=== PATIENT | female | born 1945 | race Caucasian/White ===

== ENCOUNTER → 2019-06-13 10:10 | Outpatient (BNVA) | payer MEDICARE, OTHER, SELFPAY | PROVIDERS: Family Provider Nurse Practitioner Family; PCP Nurse Practitioner Family; Referring Provider Family Medicine; Visit Provider Nurse Practitioner Family | DX: E03.9 Hypothyroidism, unspecified (principal); E78.00 Pure hypercholesterolemia, unspecified; L98.9 Disorder of the skin and subcutaneous tissue, unspecified | CPT/HCPCS: 36415; 80053; 80061; 84439; 84443 ==

== ENCOUNTER → 2019-06-20 10:58 | Outpatient (BNVA) | payer MEDICARE, OTHER, SELFPAY | PROVIDERS: Family Provider Nurse Practitioner Family; PCP Nurse Practitioner Family; Visit Provider Anesthesiology | DX: G89.29 Other chronic pain (principal); M54.5 Low back pain; M79.605 Pain in left leg; Z79.891 Long term (current) use of opiate analgesic | CPT/HCPCS: 99214 ==

== ENCOUNTER 2019-07-11 14:18 | Outpatient (CLI) | payer MEDICARE, OTHER, SELFPAY ==
--- NOTE | 2019-07-11 14:26 | MM_ITS ---
WS: [id number] BILATERAL DIGITAL SCREENING MAMMOGRAM WITH CAD CLINICAL INFORMATION: SCREENING HISTORY: Screening mammogram. No current complaints. COMPARISON: July 12, 2018 TECHNIQUE: Bilateral CC and MLO views. FINDINGS: Fatty-replaced breasts bilaterally. Vascular calcification. Stable intramammary lymph nodes. No suspi cious focal mass, asymmetry, calcifications, or architectural distortion. No evidence of malignancy. MM/[place] [id number] IMPRESSION: BI-RADS: 2-Benign FOLLOW UP: 1 Year Follow-up Recommend return to annual screening mammography.
== END 2019-07-11 14:19 | disposition home or self-care (01) ==
PROVIDERS: Family Provider Nurse Practitioner Family; PCP Nurse Practitioner Family; Visit Provider Nurse Practitioner Family
DX: Z12.31 Encounter for screening mammogram for malignant neoplasm of breast (principal)
CPT/HCPCS: 77067

== ENCOUNTER → 2019-08-16 10:16 | Outpatient (BNVA) | payer MEDICARE, OTHER, SELFPAY | PROVIDERS: Family Provider Nurse Practitioner Family; PCP Nurse Practitioner Family; Visit Provider Nurse Practitioner | DX: G89.29 Other chronic pain (principal); M54.5 Low back pain; Z79.891 Long term (current) use of opiate analgesic | CPT/HCPCS: 99212 ==

== ENCOUNTER 2019-10-08 13:55 | Emergency (ER) | payer MEDICARE, OTHER, SELFPAY ==
[2019-10-08 14:14] VITALS: BP 140/76; PULSE 91; RESP 14; TEMP 37.1; O2SAT 98; BMI 33.6
[2019-10-08 14:50] VITALS: RESP 15
[2019-10-08] MEDS: morphine 4 mg/mL SDV 1 mL IVP ×2 (14:50→15:07)
[2019-10-08] MEDS: ketorolac 30 mg/mL INJ 15 MG IVP (14:51)
[2019-10-08] MEDS: orphenadrine 30 mg/mL Inj 2 mL 60 MG IVP (14:52)
--- NOTE | 2019-10-08 15:00 | W.ED.BACK ---
HPI - Back Pain/Injury General: Chief Complaint: Back Pain/Injury Stated Complaint: back pain Time Seen by Provider: 10/08/19 14:35 History of Present Illness: HPI Narrative: 74-year-old female presents complaining of low back pain she has chronic low back pain usually sees a pain clinic she had contacted the pain clinic they still have her on regular medications she also had been to her PCP 5 days ago she was started on prednisone pain clinic referred her to the emergency room today she has a spinal cord stimulator reportedly is still functional but is not been helping much. She denied any urinary retention or fecal incontinence. She cannot recall a precipitating event which triggered it. Associated symptoms: Deny abdominal pain, chills, dysuria, fatigue, fever(s), nausea, urinary urgency or vomiting Review of Systems Const: Denies: fever(s), chills, body aches, change in appetite, fatigue or malaise ENMT: Denies: throat pain, ear or mastoid pain, nasal discharge or nasal congestion Card: Denies: chest pain, edema, dyspnea on exertion or orthopnea Resp: Denies: dyspnea, productive cough or non-productive cough GI: Denies: abdominal pain, nausea, vomiting, hematemesis, coffee ground emesis, diarrhea, constipation, bloating, hematochezia or melena : Denies: flank pain, difficulty voiding, dysuria, urinary frequency or urinary urgency Skin/Breast: Denies: rash or pruritus [facility] ED PFSH: Medical History Encounter for long-term opiate analgesic use Enrolled in chronic care management Hypertension Hypothyroidism Lumbosacral pain, chronic Obesity Surgical History History of adenoidectomy History of ankle surgery Left History of arthroscopic knee surgery History of back surgery (~2016) pain stimulator- dr. santiago History of dilation and curettage uterus History of hysterectomy History of surgery on right wrist History of tonsillectomy History of total right knee replacement Family History Father Cancer Heart disease Grandmother Stroke Denies family history of Anesthesia complication Bleeding disorder Social History (Reviewed 10/08/19 @ 15:15 by BEAU Andrade Smoking and tobacco status: never smoked Alcohol intake: never Physical Exam Const: COMMON NORMALS: no acute distress GENERAL APPEARANCE: cooperative and comfortable ORIENTATION/CONSCIOUSNESS: Yes awake, Yes oriented to person, Yes oriented to place and Yes oriented to time Neck/C-Spine: COMMON NORMALS: full ROM, no lymphadenopathy, supple and no JVD Resp: COMMON NORMALS: normal respiratory effort, No retractions, No use of accessory muscles and clear to auscultation bilaterally AUSCULTATION: clear to auscultation bilaterally Cardio: COMMON NORMALS: no JVD, regular rate, regular rhythm and No murmurs present (Cardio) RATE: regular rate RHYTHM: regular rhythm GI: COMMON NORMALS: Soft to palpation and No hepatosplenomegaly present AUSCULTATION: Yes normoactive bowel sounds PALPATION: Yes Soft to palpation, No Tenderness to palpation present (GI), No Guarding due to palpation present (GI) and Yes No hepatosplenomegaly present Extremity: COMMON NORMALS: normal to inspection, capillary refill normal, no clubbing, cyanosis or edema, no calf tenderness and no pedal edema Neuro: SENSORIUM/ORIENTATION: Yes oriented to person, Yes oriented to place and Yes oriented to time Skin: COMMON NORMALS: no rashes or lesions noted GENERAL SKIN EXAM: no rashes or lesions noted Course Vital Signs: Vital signs: Vital Signs Temperature 98.7 F 10/08/19 14:14 Pulse Rate 78 10/08/19 15:58 Respiratory Rate 16 10/08/19 15:58 Blood Pressure 156/75 10/08/19 15:58 Pulse Oximetry 97 10/08/19 15:58 MDM - Back Pain/Injury MDM Narrative: Medical decision making narrative: Chronic lumbosacral pain improved after medications continue previously prescribed medications follow-up with a pain clinic Discharge Plan Discharge Patient Disposition: Home, Self-Care Clinical Impression: Lumbosacral pain, chronic Condition: Stable Prescriptions: No Action naproxen 500 mg tablet 500 mg PO DAILY PRN (Reason: Pain) RF: 0 diphenhydramine HCl [Benadryl] 25 mg capsule 25 mg PO DAILY PRN (Reason: Itching) RF: 0 aspirin [Aspirin Childrens] 81 mg tablet,chewable 162 mg PO QDAY RF: 0 magnesium oxide 500 mg capsule 1,000 mg PO BEDTIME RF: 0 tizanidine 4 mg tablet 4 mg PO TID PRN (Reason: muscle spasticity) Qty: 90 RF: 1 hydrocodone-acetaminophen 10-325 mg tablet 1.5 tab PO TID PRN (Reason: pain) 30 Days Qty: 135 RF: 0 prednisone 20 mg tablet See Rx Instructions .ROUTE .COMPLEX Qty: 15 RF: 0 levothyroxine 75 mcg capsule 75 mcg PO QDAY Qty: 30 RF: 3 Discharge Orders: Discharge Order (Routine); Ordered 10/08/19 Ordered By: Anthony Hanks Referrals: Allie Kline NP [Primary Care Provider] - Discharge Diet: Usual diet Discharge Activity: Increase activity as tolerated Activity Restrictions/Additional Instructions: Take medications previously prescribed by the pain clinic. Follow-up with the pain clinic for further adjustments to pain medication management. Discharge Date/Time: 10/08/19 15:59 Coding Level of Care Code ED Proposal Rep for Thorg Fwd Exam Detailed
[2019-10-08 15:07] VITALS: RESP 16
--- NOTE | 2019-10-08 15:53 | PC.NURSE ---
Patient assisted to bedside commode
[2019-10-08 15:58] VITALS: BP 156/75; PULSE 78; RESP 16; O2SAT 97
== END 2019-10-08 15:59 | disposition home or self-care (01) ==
PROVIDERS: Emergency Provider Family Medicine; PCP Nurse Practitioner Family
DX: G89.29 Other chronic pain (principal); M54.5 Low back pain; Z79.82 Long term (current) use of aspirin; I10 Essential (primary) hypertension; E03.9 Hypothyroidism, unspecified
CPT/HCPCS: 12345; 96374; 96375; 99282; 99283; J1885; J2270; J2360

== ENCOUNTER → 2019-10-25 10:59 | Outpatient (BNVA) | payer MEDICARE, OTHER, SELFPAY | PROVIDERS: PCP Nurse Practitioner Family; Visit Provider Anesthesiology | DX: G89.29 Other chronic pain (principal); M54.41 Lumbago with sciatica, right side; M54.42 Lumbago with sciatica, left side; M54.9 Dorsalgia, unspecified; Z79.891 Long term (current) use of opiate analgesic | CPT/HCPCS: 99213; 99214 ==

== ENCOUNTER 2019-10-30 13:53 | Outpatient (CLI) | payer MEDICARE, OTHER, SELFPAY ==
--- NOTE | 2019-10-30 14:00 | CT_ITS ---
WS: [id number] CT LUMBAR SPINE TECHNIQUE: Noncontrast CT of the lumbar spine with coronal and sagittal reformatted images. CLINICAL INFORMATION: chronic back pain COMPARISON: MRI October 28, 2016 DLP: 1482.[address] scans at [facility] use at least one of these dose optimization techniques: automat ed exposure control; mA and/or kV adjustment per patient size (includes targeted exams where dose is matched to clinical indication); or iterative reconstruction. FINDINGS: Mild lumbar scoliosis convex left. Moderate spondylitic changes lumbar spine with multilevel degenera tive disc disease. Disc space narrowing worse at L1-L2, L2-L3, L3-L4 with vacuum disc phenomenon and endplate degenerative changes. This is progressed since 2017. No acute appearing compression fracture s. Spinal stimulator traverses cephalad off the [id number]. Extensive bilateral sacral insufficiency fractures with visualized fracture clefts right greater than left. Recommend correlation with sacral pain. L1-L2: Mild disc bulging with vacuum disc phenomenon. Spinal canal and foramen are patent. Mild facet arthropathy. L2-L3: Disc osteophyte ridging with slight effacement of the ventral thecal sac. Narrowing of the rig ht subarticular recess. Mild right foraminal narrowing. Mild central canal stenosis. Moderate facet a rthropathy. L3-L4: Slight retrolisthesis. Vacuum disc phenomenon with disc desiccation. Mild right and no signifi cant left foraminal narrowing. Mild central canal stenosis with narrowing of the subarticular recess. Moderate facet arthropathy. L4-L5: Tiny left pericentral protrusion. Mild left and no significant right foraminal narrowing. Adva nced facet arthropathy ligamentum flavum hypertrophy. L5-S1: No significant disc bulging. Mild left and no significant right bony foraminal narrowing. Mode rate facet arthropathy CT/CT lumbar spine wo con* [id number] IMPRESSION: 1. Extensive bilateral sacral insufficiency fractures partially visualized inv olving both sacral ala right greater than left. Recommend correlation for sacra l pain. 2. Mild central canal stenosis with progressed disc desiccation L2-L3 and L3-L 4. 3. Narrowing of the right subarticular recess L2-3 with impingement traversing right L3 nerve root. Mild right L2-3 foraminal narrowing. 4. Mild right L3-4 and left L4-5 foraminal narrowing. 5. Advanced facet arthropathy L3-L4 and L4-L5. 6. Spinal stimulator extending cephalad of the [id number].
--- NOTE | 2019-10-30 14:15 | CT_ITS ---
WS: [id number] CT THORACIC SPINE TECHNIQUE: Noncontrast CT of the thoracic spine with coronal and sagittal reformatted images. CLINICAL INFORMATION: chronic back pain COMPARISON: None. DLP: 1096.[address] scans at [facility] use at least one of these dose optimization techniques: automat ed exposure control; mA and/or kV adjustment per patient size (includes targeted exams where dose is matched to clinical indication); or iterative reconstruction. FINDINGS: Mild thoracic curve convex right. No acute appearing compression fractures. No high-grade central can al stenosis. Dorsal spinal stimulator. Mild disc space narrowing mid and lower thoracic spine. A few Schmorl's nodes in the mid lower thoracic spine. Adrenal glands are normal. Normal caliber partially visualized thoracic aorta. Small esophageal hiata l hernia. Spinal stimulator projected over the mid thoracic spine dorsally with tip at the T7 level. CT/CT thoracic spin wo con* [id number] IMPRESSION: 1. Mild thoracic curve convex right with moderate spondylitic changes. 2. Mild chronic anterior wedging in the mid thoracic spine more prominent at T 5 and T6. No acute appearing compression fractures. 3. A few Schmorl's nodes in the mid and lower thoracic spine. 4. Dorsal spinal stimulator with tip at the T7 level. 5. No high-grade central canal stenosis. 6. Small esophageal hiatal hernia. 7. No acute thoracic spine findings.
== END 2019-10-30 13:54 | disposition home or self-care (01) ==
LOC: RADWPI 13:58
PROVIDERS: PCP Nurse Practitioner Family; Visit Provider Nurse Practitioner Family
DX: M54.5 Low back pain (principal); G89.29 Other chronic pain; M51.44 Schmorl's nodes, thoracic region; K44.9 Diaphragmatic hernia without obstruction or gangrene
CPT/HCPCS: 72128; 72131

== ENCOUNTER → 2019-12-25 09:40 | Outpatient (BNVA) | payer MEDICARE, OTHER, SELFPAY | PROVIDERS: PCP Nurse Practitioner Family; Visit Provider Nurse Practitioner Family | DX: E78.5 Hyperlipidemia, unspecified (principal); E83.52 Hypercalcemia | CPT/HCPCS: 36415; 80048; 80061 ==

== ENCOUNTER → 2020-02-05 12:05 | Outpatient (BNVA) | payer MEDICARE, OTHER, SELFPAY | PROVIDERS: PCP Nurse Practitioner Family; Visit Provider Internal Medicine | DX: Z11.59 Encounter for screening for other viral diseases (principal) | CPT/HCPCS: 87635 ==

== ENCOUNTER 2020-02-10 08:31 | Day surgery (SDC) | payer MEDICARE, OTHER, SELFPAY ==
[2020-02-06 13:37] VITALS: BMI 33.4
--- NOTE | 2020-02-10 08:51 | W.PM.OPSUD ---
Surgery/Procedure H&P Update DATE OF PROCEDURE: February 10, 2020 DATE H&P PERFORMED: 02/05/20 PLANNED PROCEDURE: Operation Date: 02/10/20 10:00 Proposed Procedures p EGD/colon 08995 60184 Z86.10 R13.10(Not Applicable) - Aniceto Rand MD s Colonoscopy(Not Applicable) - Aniceto Rand MD
[2020-02-10 09:27] VITALS: BP 144/81; PULSE 90; RESP 18; TEMP 36.6; O2SAT 97
[2020-02-10] MEDS: sodium chloride 0.9% 1,000 ML 30 ML IV (09:34)
--- NOTE | 2020-02-10 09:40 | ANES.PREANE2 ---
Pre-Anesthetic Assessment Pre-Anesthetic Assessment: Height/Weight: Height 1.65 m Weight 91.172 kg Temp Pulse Resp BP Pulse Ox 97.8 F 90 18 144/81 97 02/10/20 09:27 02/10/20 09:27 02/10/20 09:27 02/10/20 09:27 02/10/20 09:27 Preop Diagnosis: odynophagia Proposed Procedure: Operation Date: 02/10/20 10:00 Proposed Procedures p EGD/colon 93280 00309 Z86.10 R13.10(Not Applicable) - Aniceto Rand MD s Colonoscopy(Not Applicable) - Aniceto Rand MD Familial anesthetic complications: none Was Beta Neftaly taken within 24 hours: N/A Last intake: Intake Last Liquid Date 02/09/20 Last Liquid Time 23:55 Last Solid Date 02/08/20 Last Solid Time 18:00 Social: Social History: No alcohol and No tobacco Exam: Pre-Anes Outpt Exam: alert, oriented x 3, clear to auscultation bilaterally and regular rate & rhythm Airway: Cervical ROM: WNL MP: 3 Dentition: Other (no teeth) GI: GI: Hiatus hernia Metabolic: Metabolic: Thyroid Musc/skel: Musc/skel: Lower Back Pain (w/ SCS) Anesthetic Plan: ASA status: 2 Anesthesia: MAC Risk of > 500 ml blood loss (7ml/kg in children): No Meds/Allergies Current Medications: Current Medications Generic Name Dose Route Start Last Admin Trade Name Freq PRN Reason Stop Dose Admin Sodium Chloride 1,000 mls @ 30 ml s/hr 02/10/20 08:45 02/10/20 09:34 Sodium Chloride 0.9% IV 02/11/20 08:44 30 mls/hr .Q24H ASTON Administration PFSH Anesthesia PFSH: Medical History (Updated 02/05/20 @ 11:25 by Aniceto Rand MD) Encounter for long-term opiate analgesic use Enrolled in chronic care management Hypertension Hypothyroidism Lumbosacral pain, chronic Obesity Surgical History History of adenoidectomy History of ankle surgery Left History of arthroscopic knee surgery History of back surgery (~2015) pain stimulator- dr. santiago History of dilation and curettage uterus History of hysterectomy History of surgery on right wrist History of tonsillectomy History of total right knee replacement Family History Father Cancer Heart disease Grandmother Stroke Denies family history of Anesthesia complication Bleeding disorder Social History Smoking and tobacco status: never smoked Second hand smoke exposure: No Alcohol intake: never History of recent travel: No Data Anesthesia Cardiac Studies: No Data to Display
[2020-02-10 11:05] VITALS: BP 97/62; PULSE 79; RESP 18; TEMP 36.3; O2SAT 95
--- NOTE | 2020-02-10 11:08 | ANE.PACU2 ---
Inpatient post-anesthesia follow up: Airway intact: Yes Vital signs: Temperature 97.8 F Pulse Rate 90 Respiratory Rate 18 Blood Pressure 144/81 Pulse Oximetry 97 Oxygen Delivery Me thod Room Air Oxygen Flow Rate Fraction of Inspir ed Oxygen Hydration adequate: Yes Nausea and vomiting: No Pain level: 0 Mental status: Baseline
[2020-02-10 11:20] VITALS: BP 107/62; PULSE 74; RESP 18; O2SAT 97
[2020-02-11 08:43] LABS: H. Pylori / CLO Test Negative
== END 2020-02-10 11:45 | disposition home or self-care (01) ==
PROVIDERS: PCP Nurse Practitioner Family; Visit Provider Internal Medicine
PROC: 0DJ08ZZ Inspection of Upper Intestinal Tract, Via Natural or Artificial Opening Endoscopic (ICD-10-PCS; CPT 43235; principal; 2020-02-10 10:00)
PROC: 0DJD8ZZ Inspection of Lower Intestinal Tract, Via Natural or Artificial Opening Endoscopic (ICD-10-PCS; CPT 45378; 2020-02-10 10:00)
DX: Z12.11 Encounter for screening for malignant neoplasm of colon (principal); K25.7 Chronic gastric ulcer without hemorrhage or perforation; I10 Essential (primary) hypertension; E03.9 Hypothyroidism, unspecified; E66.9 Obesity, unspecified; Z79.82 Long term (current) use of aspirin; Z88.0 Allergy status to penicillin; Z88.2 Allergy status to sulfonamides; Z68.33 Body mass index [BMI] 33.0-33.9, adult; Z86.010 Personal history of colon polyps
CPT/HCPCS: 12345; 43239; 45378; 87077; J2250; J2370; J2704; J3010; J7030

== ENCOUNTER 2020-03-30 13:28 | Outpatient (CLI) | payer MEDICARE, OTHER, SELFPAY ==
--- NOTE | 2020-03-30 13:30 | US_ITS ---
WS: [id number] ABDOMINAL ULTRASOUND LIMITED REASON FOR VISIT: pain TECHNIQUE: Grayscale and Doppler ultrasound examination of the abdomen. FINDINGS: Pancreas: Visualized portions of the pancreas are unremarkable. Abdominal aorta and IVC: Visualized portions are unremarkable. Liver: Liver measures 14.6 cm in length. Mildly increased echotexture. No focal lesion. Gallbladder: Gallbladder wall thickness measures 0.2 mm. No calculi identified. Common bile duct norm al caliber. Right kidney: Right kidney measures 10.3 cm x 5.0 cm x 4.5 cm. Right kidney cortex measures 1.3 cm. N o mass, calculus or hydronephrosis. No free fluid. US/US gall bladder [id number] IMPRESSION: Probable fatty infiltration of the liver without other abnormality.
== END 2020-03-30 13:29 | disposition home or self-care (01) ==
LOC: RAD 13:35
PROVIDERS: PCP Nurse Practitioner Family; Visit Provider Internal Medicine
DX: R10.9 Unspecified abdominal pain (principal)
CPT/HCPCS: 76705

== ENCOUNTER 2020-05-06 07:55 | Outpatient (CLI) | payer MEDICARE, OTHER, SELFPAY ==
--- NOTE | 2020-05-06 08:00 | NM_ITS ---
WS: [id number] NUCLEAR MEDICINE HIDA SCAN WITH GALLBLADDER EJECTION FRACTION HISTORY: R10.13 - Epigastric pain COMPARISON: 03/30/2020 TECHNIQUE: The patient was intravenously injected with 7.6 mCi of TC99m Mebrofenin. Immediate imaging over the right upper quadrant was followed by 5 minute image and additional images for a total of 60 minutes. Normal uptake of radiotracer throughout the liver. Activity identified in the gallbladder at 15 minutes and well distended by 60 minutes. Activity in the proximal small bowel was seen by 30 minutes. Good washout of the radiotracer from the liver by 60 minutes. The patient then drank 8 ounces of Ensure Plus. Ejection fraction at 60 minutes was 74%. Normal GB ej ection fraction is 35-75%. Post fatty meal symptoms: RIGHT upper quadrant pain. NM/NM hepatobiliary w phar* [id number] IMPRESSION: 1. Normal HIDA scan. 2. Normal gallbladder ejection fraction.
== END 2020-05-06 07:56 | disposition home or self-care (01) ==
LOC: NM 07:55
PROVIDERS: PCP Nurse Practitioner Family; Visit Provider Surgery
DX: R10.13 Epigastric pain (principal)
CPT/HCPCS: 78227; A9537

== ENCOUNTER → 2020-07-03 09:19 | Outpatient (BNVA) | payer MEDICARE, SELFPAY | PROVIDERS: PCP Nurse Practitioner Family; Visit Provider Nurse Practitioner Family | DX: E03.9 Hypothyroidism, unspecified (principal); E83.42 Hypomagnesemia | CPT/HCPCS: 80053; 80061; 83735; 84439; 84443; 85025 ==

== ENCOUNTER → 2020-07-10 10:43 | Outpatient (BNVA) | payer MEDICARE, SELFPAY | PROVIDERS: PCP Nurse Practitioner Family; Visit Provider Nurse Practitioner Family | DX: Z78.0 Asymptomatic menopausal state (principal); R74.8 Abnormal levels of other serum enzymes | CPT/HCPCS: 82977 ==

== ENCOUNTER 2020-07-14 10:03 | Outpatient (CLI) | payer MEDICARE, SELFPAY ==
--- NOTE | 2020-07-14 10:09 | MM_ITS ---
WS: [id number] SCREENING DIGITAL MAMMOGRAM WITH CAD HISTORY: SCREENING COMPARISON: 07/11/2019, 07/12/2018 and 07/06/2017 Bilateral CC and MLO views submitted. Computer aided detection analyzed. Breast composition: There are scattered areas of fibroglandular density. Developing irregular asymmet ry measuring 9 mm in the anterior RIGHT breast at 12:00. Benign calcifications in each breast. MM/[place] [id number] IMPRESSION: BI-RADS: 0-Incomplete: Need additional imaging evaluation FOLLOW UP: Need Additional Imaging RIGHT breast: Spot compression views (CC and MLO). True ML. Ultrasound to follo w if abnormality persists.
--- NOTE | 2020-07-14 11:12 | XR_ITS ---
WS: [id number] DEXA (DUAL ENERGY X-RAY ABSORPTIOMETRY) Bone mineral density was performed using a Tapingo machine. HISTORY: Z78.0 - Asymptomatic menopausal state COMPARISON: None available. Left forearm BMD: 0.628 g/cm2. T score: -2.8 Z score: -0.6 Total hip BMD: Left: 0.655 g/cm2. T score: -2.8 Z score: -1.6 Right: 0.666 g/cm2. T score: -2.7 Z score: -1.5 10 year probability of a major osteoporotic fracture is 25%. XR/XR DEXA axial skeleton* [id number] IMPRESSION: OSTEOPOROSIS based upon the WHO classification for females.
== END 2020-07-14 10:04 | disposition home or self-care (01) ==
PROVIDERS: PCP Nurse Practitioner Family; Visit Provider Nurse Practitioner Family
DX: Z12.31 Encounter for screening mammogram for malignant neoplasm of breast (principal); Z78.0 Asymptomatic menopausal state; M81.0 Age-related osteoporosis without current pathological fracture; N64.89 Other specified disorders of breast
CPT/HCPCS: 77067; 77080

== ENCOUNTER 2020-07-30 07:53 | Outpatient (CLI) | payer MEDICARE, SELFPAY ==
--- NOTE | 2020-07-30 08:00 | MM_ITS ---
WS: [id number] ADDITIONAL VIEWS RIGHT BREAST RIGHT breast ultrasound, limited HISTORY: R92.8 - Other abnormal and inconclusive findings on diagnostic imaging of breast COMPARISON: 07/14/2020 and 07/11/2019 Compression views right CC and MLO projection. True ML also submitted. The asymmetry nearly completely resolves. Very subtle remaining asymmetries seen on the lateral proje ction. Ultrasound to follow. RIGHT breast ultrasound, limited. Minimally complex cyst with wall at 12:00 anteriorly. This may or may not correspond to the mammograp hic abnormality. There are no additional abnormalities. MM/[place] [id number] IMPRESSION: BI-RADS: 3-Probably Benign FOLLOW-UP: 6 Month Follow-up Recommend ultrasound follow-up RIGHT breast at 6 months to reevaluate the compl ex cyst at 12:00.
--- NOTE | 2020-07-30 08:07 | US_ITS ---
WS: [id number] ADDITIONAL VIEWS RIGHT BREAST RIGHT breast ultrasound, limited HISTORY: R92.8 - Other abnormal and inconclusive findings on diagnostic imaging of breast COMPARISON: 07/14/2020 and 07/11/2019 Compression views right CC and MLO projection. True ML also submitted. The asymmetry nearly completely resolves. Very subtle remaining asymmetries seen on the lateral proje ction. Ultrasound to follow. RIGHT breast ultrasound, limited. Minimally complex cyst with wall at 12:00 anteriorly. This may or may not correspond to the mammograp hic abnormality. There are no additional abnormalities. US/US breast RT limited* [id number] IMPRESSION: BI-RADS: 3-Probably Benign FOLLOW-UP: 6 Month Follow-up Recommend ultrasound follow-up RIGHT breast at 6 months to reevaluate the compl ex cyst at 12:00.
== END 2020-07-30 07:54 | disposition home or self-care (01) ==
LOC: RADSHAW 07:57
PROVIDERS: PCP Nurse Practitioner Family; Visit Provider Nurse Practitioner Family
DX: N64.89 Other specified disorders of breast (principal); N60.01 Solitary cyst of right breast
CPT/HCPCS: 76642; 77065

== ENCOUNTER → 2020-08-07 10:03 | Outpatient (BNVA) | payer MEDICARE, SELFPAY | PROVIDERS: PCP Nurse Practitioner Family; Visit Provider Nurse Practitioner Family | DX: M25.562 Pain in left knee (principal) | CPT/HCPCS: 73562 ==

== ENCOUNTER 2021-01-20 12:28 | Outpatient (CLI) | payer MEDICARE, SELFPAY ==
--- NOTE | 2021-01-20 12:45 | US_ITS ---
WS: [id number] ULTRASOUND RIGHT BREAST HISTORY: N60.01 - Solitary cyst of right breast COMPARISON: 07/30/2020 TECHNIQUE: 2-D and Doppler. At 12:00 near the areolar there is a hypoechoic nodule measuring 4 x 4 x 2 mm which has not changed i n size since the prior examination. This probably represents a complex cyst. There is no increased va scularity. US/US breast RT limited* [id number] IMPRESSION: BI-RADS: 3-Probably Benign FOLLOW-UP: 6 Month Follow-up Indication 6 month evaluation of the complex cyst in the RIGHT breast at 12:00 is recommended by ultrasound. Patient should return for annual mammogram in Jun. Ultrasound of this cyst can be performed at that time.
== END 2021-01-20 12:29 | disposition home or self-care (01) ==
PROVIDERS: PCP Nurse Practitioner Family; Visit Provider Nurse Practitioner Family
DX: N60.01 Solitary cyst of right breast (principal)
CPT/HCPCS: 76642

== ENCOUNTER 2021-02-23 08:31 | Outpatient (CLI) | payer MEDICARE, SELFPAY ==
--- NOTE | 2021-02-23 08:45 | US_ITS ---
WS: [id number] Left breast ultrasound, 02/23/2021 Clinical Data: N64.59 - Other signs and symptoms in breast Comparison: Left breast ultrasound, 08/03/2010. Findings: Imaging of the left breast 12:00 to 9:00 position demonstrated no cysts or masses. There was an area of subcutaneous thickening at the 3:00 position which is nonspecific. No air-fluid levels or distinct mass was noted. US/US breast LT limited* [id number] Impression: 1. Minimal subcutaneous emptying at the 3:00 position left breast 1 cm from the nipple which is nonspecific. 2. Recommend clinical evaluation. 3. Recommend annual screening mammograms. BIRADS: 2-Benign FOLLOW UP: See Report
--- NOTE | 2021-02-23 11:04 | MM_ITS ---
WS: [id number] Bilateral diagnostic digital mammogram, 02/23/2021 Clinical Data: N64.4 - Mastodynia Comparison: 07/30/2020, 07/14/2020, 07/11/2019, 07/12/2018, 07/06/2017, 06/15/2016, 06/03/2015, 08/03/2010, . Findings: The breast parenchymal pattern shows fat replacement. There are numerous mole markers on both breasts . Axillary lymph nodes are seen. There are no secondary signs of carcinoma. No spiculated masses or c lustered calcifications are seen. Additional left breast imaging with compression in the CC view show ed no abnormalities. MM/[place] [id number] Impression: 1. Negative bilateral mammograms unchanged. 2. Left breast ultrasound performed for mastodynia. BIRADS: 2-Benign FOLLOW UP: See Report The CAD lap checker was used.
== END 2021-02-23 08:32 | disposition home or self-care (01) ==
PROVIDERS: PCP Nurse Practitioner Family; Visit Provider Nurse Practitioner Family
DX: N64.4 Mastodynia (principal); N64.59 Other signs and symptoms in breast
CPT/HCPCS: 76642; 77066

== ENCOUNTER → 2021-06-02 08:42 | Outpatient (BNVA) | payer MEDICARE, SELFPAY | PROVIDERS: PCP Nurse Practitioner Family; Visit Provider Family Medicine | DX: E55.9 Vitamin D deficiency, unspecified (principal); I10 Essential (primary) hypertension; E83.42 Hypomagnesemia; E03.9 Hypothyroidism, unspecified | CPT/HCPCS: 80053; 80061; 82306; 83735; 84443; 85025 ==

== ENCOUNTER 2021-07-13 08:36 | Outpatient (CLI) | payer MEDICARE, SELFPAY ==
--- NOTE | 2021-07-13 09:00 | MM_ITS ---
WS: [id number] ADDITIONAL VIEWS RIGHT MAMMOGRAM RIGHT BREAST ULTRASOUND HISTORY: Follow-up complex cyst RIGHT breast at 12:00. COMPARISON: 02/23/2021, 07/30/2020 and 07/14/2020 and 07/12/2018 RIGHT MAMMOGRAM: Spot compression views and true ML. Small ovoid nodule measuring 4 mm persists posterior to the nipple. Best seen on the MLO projection. No suspicious mass or calcification. Ultrasound to follow. RIGHT BREAST ULTRASOUND 2-D and color Doppler imaging submitted. The complex cyst noted at 12:00 in the RIGHT breast is unchanged. Villareal are slightly echogenic and th is nodule is ovoid measuring 4 x 4 x 2 mm. No increase in size. MM/[place] [id number] IMPRESSION: BI-RADS: 2-Benign FOLLOW UP: 6 Month Follow-up Patient to return for bilateral diagnostic mammogram in February 2022. Continued ultrasound documentation of the RIGHT breast complex cyst recommended to roger long-term stability.
--- NOTE | 2021-07-13 09:30 | US_ITS ---
WS: [id number] ADDITIONAL VIEWS RIGHT MAMMOGRAM RIGHT BREAST ULTRASOUND HISTORY: Follow-up complex cyst RIGHT breast at 12:00. COMPARISON: 02/23/2021, 07/30/2020 and 07/14/2020 and 07/12/2018 RIGHT MAMMOGRAM: Spot compression views and true ML. Small ovoid nodule measuring 4 mm persists posterior to the nipple. Best seen on the MLO projection. No suspicious mass or calcification. Ultrasound to follow. RIGHT BREAST ULTRASOUND 2-D and color Doppler imaging submitted. The complex cyst noted at 12:00 in the RIGHT breast is unchanged. Villareal are slightly echogenic and th is nodule is ovoid measuring 4 x 4 x 2 mm. No increase in size. US/US breast RT limited* [id number] IMPRESSION: BI-RADS: 2-Benign FOLLOW UP: 6 Month Follow-up Patient to return for bilateral diagnostic mammogram in February 2022. Continued ultrasound documentation of the RIGHT breast complex cyst recommended to roger long-term stability.
== END 2021-07-13 08:37 | disposition home or self-care (01) ==
LOC: RADSHAW 08:57
PROVIDERS: PCP Nurse Practitioner Family; Visit Provider Nurse Practitioner Family
DX: N64.59 Other signs and symptoms in breast (principal); N63.15 Unspecified lump in the right breast, overlapping quadrants
CPT/HCPCS: 76642; 77065

== ENCOUNTER → 2022-02-03 09:02 | Outpatient (BNVA) | payer MEDICARE, SELFPAY | PROVIDERS: PCP Nurse Practitioner Family; Referring Provider Nurse Practitioner; Visit Provider Specialist | DX: G62.89 Other specified polyneuropathies (principal) | CPT/HCPCS: 95909; 95911 ==

== ENCOUNTER 2022-02-28 07:34 | Outpatient (CLI) | payer MEDICARE, SELFPAY ==
--- NOTE | 2022-02-28 07:42 | MM_ITS ---
WS: [id number] DIAGNOSTIC BILATERAL DIGITAL BREAST TOMOSYNTHESIS MAMMOGRAPHY WITH CAD RIGHT breast ultrasound, limited HISTORY: N63.0 - Unspecified lump in unspecified breast COMPARISON: 07/13/2021, 02/23/2021 and 07/12/2018 TECHNIQUE: Bilateral craniocaudad, mediolateral oblique, and mediolateral views are submitted with to mosynthesis and SM. Spot compression RIGHT MLO and cc. Computer aided detection utilized. Breast composition: There are scattered areas of fibroglandular density. The 5 mm nodule just posteri or to the nipple is reidentified without increase in size. This is near the 12:00 axis in the anterio r breast. RIGHT breast ultrasound, limited. Ultrasound directed to the 12:00 as the site previously described. At 12:00 there is an ovoid hypoech oic 5 x 4 x 2 mm nodule which is probably a complex cyst. No increase in size. MM/[place] [id number] IMPRESSION: BI-RADS: 2-Benign FOLLOW UP: 1 Year Follow-up
--- NOTE | 2022-02-28 08:30 | US_ITS ---
WS: [id number] DIAGNOSTIC BILATERAL DIGITAL BREAST TOMOSYNTHESIS MAMMOGRAPHY WITH CAD RIGHT breast ultrasound, limited HISTORY: N63.0 - Unspecified lump in unspecified breast COMPARISON: 07/13/2021, 02/23/2021 and 07/12/2018 TECHNIQUE: Bilateral craniocaudad, mediolateral oblique, and mediolateral views are submitted with to mosynthesis and SM. Spot compression RIGHT MLO and cc. Computer aided detection utilized. Breast composition: There are scattered areas of fibroglandular density. The 5 mm nodule just posteri or to the nipple is reidentified without increase in size. This is near the 12:00 axis in the anterio r breast. RIGHT breast ultrasound, limited. Ultrasound directed to the 12:00 as the site previously described. At 12:00 there is an ovoid hypoech oic 5 x 4 x 2 mm nodule which is probably a complex cyst. No increase in size. US/US breast RT limited* [id number] IMPRESSION: BI-RADS: 2-Benign FOLLOW UP: 1 Year Follow-up
== END 2022-02-28 07:35 | disposition home or self-care (01) ==
LOC: RAD 07:34
PROVIDERS: PCP Nurse Practitioner Family; Visit Provider Nurse Practitioner Family
DX: R92.8 Other abnormal and inconclusive findings on diagnostic imaging of breast (principal); N63.15 Unspecified lump in the right breast, overlapping quadrants
CPT/HCPCS: 76642; 77062

== ENCOUNTER 2022-06-10 06:00 | Outpatient (RCR) | payer MEDICARE, SELFPAY | END 2022-06-21 23:59 | disposition home or self-care (01) | LOC: GPT 06:00 | PROVIDERS: PCP Nurse Practitioner Family; Visit Provider Physician Assistant Surgical | DX: M16.11 Unilateral primary osteoarthritis, right hip (principal); M25.551 Pain in right hip | CPT/HCPCS: 97110; 97140; 97162; 97530 ==

== ENCOUNTER 2022-06-22 06:00 | Outpatient (RCR) | payer MEDICARE, SELFPAY | END 2022-07-19 23:59 | disposition home or self-care (01) | LOC: GPT 06:00 | PROVIDERS: PCP Nurse Practitioner Family; Visit Provider Physician Assistant Surgical | DX: M16.11 Unilateral primary osteoarthritis, right hip (principal); M25.551 Pain in right hip | CPT/HCPCS: 97110; 97112; 97140; 97164; 97530 ==

== ENCOUNTER 2022-07-20 06:00 | Outpatient (RCR) | payer MEDICARE, SELFPAY | END 2022-08-19 23:59 | disposition home or self-care (01) | LOC: GPT 06:00 | PROVIDERS: PCP Nurse Practitioner Family; Visit Provider Physician Assistant Surgical | DX: M25.551 Pain in right hip (principal) | CPT/HCPCS: 97110; 97112; 97140; 97530; 97535 ==

== ENCOUNTER 2022-08-20 06:00 | Outpatient (RCR) | payer MEDICARE, SELFPAY | END 2022-09-18 23:59 | disposition home or self-care (01) | LOC: GPT 06:00 | PROVIDERS: PCP Nurse Practitioner Family; Visit Provider Physician Assistant Surgical | DX: M16.11 Unilateral primary osteoarthritis, right hip (principal); M25.551 Pain in right hip | CPT/HCPCS: 97110; 97140; 97530 ==

== ENCOUNTER 2022-09-19 06:00 | Outpatient (RCR) | payer MEDICARE, SELFPAY | END 2022-09-20 23:59 | disposition home or self-care (01) | LOC: GPT 06:00 | PROVIDERS: PCP Nurse Practitioner Family; Visit Provider Physician Assistant Surgical | DX: M25.551 Pain in right hip (principal) | CPT/HCPCS: 97110; 97140; 97164 ==

== ENCOUNTER → 2022-09-28 10:19 | Outpatient (BNVA) | payer MEDICARE, SELFPAY | PROVIDERS: PCP Nurse Practitioner Family; Visit Provider Family Medicine | DX: R74.8 Abnormal levels of other serum enzymes (principal) | CPT/HCPCS: 80053 ==

== ENCOUNTER 2022-10-26 15:52 | Outpatient (RCR) | payer MEDICARE, SELFPAY | END 2022-11-18 23:59 | disposition home or self-care (01) | LOC: GPT 15:52 | PROVIDERS: Visit Provider Physician Assistant Surgical | DX: Z47.1 Aftercare following joint replacement surgery (principal); Z96.641 Presence of right artificial hip joint | CPT/HCPCS: 97110; 97112; 97116; 97140; 97161; 97530; 97535 ==

== ENCOUNTER 2022-11-19 06:00 | Outpatient (RCR) | payer MEDICARE, SELFPAY | END 2022-12-19 23:59 | disposition home or self-care (01) | LOC: GPT 06:00 | PROVIDERS: PCP Family Medicine; Visit Provider Physician Assistant Surgical | DX: Z47.1 Aftercare following joint replacement surgery (principal); Z96.641 Presence of right artificial hip joint | CPT/HCPCS: 97110; 97112; 97140; 97164; 97530; 97535 ==

== ENCOUNTER 2022-12-20 06:00 | Outpatient (RCR) | payer MEDICARE, SELFPAY | END 2023-01-19 23:59 | disposition home or self-care (01) | LOC: GPT 06:00 | PROVIDERS: PCP Family Medicine; Visit Provider Physician Assistant Surgical | DX: Z47.1 Aftercare following joint replacement surgery (principal); Z96.641 Presence of right artificial hip joint | CPT/HCPCS: 97110; 97112; 97140; 97164; 97530 ==

== ENCOUNTER 2023-01-20 06:00 | Outpatient (RCR) | payer MEDICARE, SELFPAY | END 2023-02-18 23:59 | disposition home or self-care (01) | LOC: GPT 06:00 | PROVIDERS: PCP Family Medicine; Visit Provider Physician Assistant Surgical | DX: Z47.1 Aftercare following joint replacement surgery (principal); Z96.641 Presence of right artificial hip joint | CPT/HCPCS: 97110; 97112; 97164; 97530 ==

== ENCOUNTER 2023-02-19 06:00 | Outpatient (RCR) | payer MEDICARE, SELFPAY | END 2023-03-07 23:59 | disposition home or self-care (01) | LOC: GPT 06:00 | PROVIDERS: PCP Family Medicine; Visit Provider Physician Assistant Surgical | DX: Z47.1 Aftercare following joint replacement surgery (principal); Z96.641 Presence of right artificial hip joint | CPT/HCPCS: 97110; 97530 ==

== ENCOUNTER 2023-03-14 09:59 | Outpatient (CLI) | payer MEDICARE, SELFPAY ==
--- NOTE | 2023-03-14 10:07 | MM_ITS ---
WS: [id number] BILATERAL 3D TOMOSYNTHESIS DIGITAL SCREENING MAMMOGRAPHY WITH CAD CLINICAL INFORMATION: SCREENING HISTORY: Screening mammogram. Bilateral breast soreness COMPARISON: 02/28/2022 TECHNIQUE: Bilateral CC and MLO views. FINDINGS: Scattered fibroglandular densities bilaterally. No suspicious focal mass, asymmetry, calcifications, or architectural distortion. No evidence of malignancy. A few incidental punctate calcifications. IMPRESSION: MM/[place] [id number] BI-RADS: 2-Benign FOLLOW UP: 1 Year Follow-up Recommend return to annual screening mammography.
== END 2023-03-14 10:00 | disposition home or self-care (01) ==
LOC: RAD 09:59
PROVIDERS: PCP Family Medicine; Visit Provider Family Medicine
DX: Z12.31 Encounter for screening mammogram for malignant neoplasm of breast (principal)
CPT/HCPCS: 77063; 77067

== ENCOUNTER → 2023-04-26 10:01 | Outpatient (BNVA) | payer MEDICARE, SELFPAY | PROVIDERS: PCP Family Medicine; Visit Provider Family Medicine | DX: R74.8 Abnormal levels of other serum enzymes (principal) | CPT/HCPCS: 80053 ==

== ENCOUNTER 2024-04-03 10:00 | Outpatient (CLI) | payer MEDICARE, SELFPAY ==
--- NOTE | 2024-04-03 10:03 | MM_ITS ---
WS: [id number] Bilateral screening 3D tomosynthesis digital mammogram, 04/03/2024 10:06 AM Clinical Data: SCREENING Comparison: 03/14/2023, 02/28/2022, 07/13/2021, 02/23/2021, 07/30/2020, 07/14/2020, 07/11/2019, 07/12/2018, 07/06/2017, 06/15/2016, 06/03/2015, 08/03/2010, 02/06/2009. Findings: No spiculated masses or clustered calcifications are seen. There are no secondary signs of carcinoma . Numerous mole markers are on both breasts. MM/MM scr [place] tomosynthesis [id number] Impression: Negative bilateral mammogram unchanged. Recommend annual screening mammograms. BIRADS: 1 - Negative. FOLLOW UP: 1 Year Follow-up DENSITY: There are scattered areas of fibroglandular density. The CAD machine design checker was used
== END 2024-04-03 10:01 | disposition home or self-care (01) ==
PROVIDERS: PCP Family Medicine; Visit Provider Nurse Practitioner
DX: Z12.31 Encounter for screening mammogram for malignant neoplasm of breast (principal)
CPT/HCPCS: 77063; 77067

== ENCOUNTER → 2024-04-08 11:15 | Outpatient (BNVA) | payer MEDICARE, SELFPAY | PROVIDERS: PCP Family Medicine; Visit Provider Nurse Practitioner Family | DX: I78.8 Other diseases of capillaries (principal); D22.39 Melanocytic nevi of other parts of face; L21.8 Other seborrheic dermatitis; L57.0 Actinic keratosis; L82.1 Other seborrheic keratosis; L91.8 Other hypertrophic disorders of the skin | CPT/HCPCS: 17000; 99213 ==